=== PATIENT | male | born 1995 | race Caucasian/White ===

== ENCOUNTER 2022-01-24 03:56 | Observation (INO) | payer OTHER ==
[~2022-01-24] VITALS: Ht 172.7 cm; Wt 61.5 kg
--- NOTE | ~2022-01-24 | EKG ---
[facility] [address] [facility] [place], [place] [address] Draft EK completed, results pending confirmation PATIENT NAME: [facility]ANNON [facility]BS [facility] Electro[facility]ogram DATE OF : [birth year] PHYSICIAN: PRELIMINARY REPORT #: [id number] REPORT IS CONFIDENTIAL AND NOT TO BE RELEASED WITHOUT AUTHORIZATION
[~2022-01-24 03:56] MED LIST: AZITHROMYCIN500 MG PO; TYLENOL325 MG PO
--- NOTE | 2022-01-24 09:09 | NUR ---
Pt arrives to medical floor from ED. Able to transfer self to bed. Hx and assessment complete. IVF infusing WNL. Pt A+O, on RA. Pain 06/[address] Ontiveros in room to see patient, new orders received.
--- NOTE | 2022-01-24 10:35 | NUR ---
Rounded on patient who is resting in bed with eyes closed. Even and unlabored respirations. IVF infusing WNL. No needs apparent at this time. Call light in reach.
--- NOTE | 2022-01-24 14:45 | NUR ---
Nicotine patch applied, pt states slight agitation r/t not smoking, denies pain or nausea at this time. Father at bedside. IVF infusing. Pt awaiting surgery. Call light in reach.
--- NOTE | 2022-01-24 14:45 | NUR ---
IV ABX infusing per order. Pt provided with PRN toradol for ABD pain. Denies nausea. Assessment complete. Pt prepared and ready for surgery.
--- NOTE | 2022-01-24 15:59 | NUR ---
WHEN I WENT IN TO DO HIS AFTERNOON VITALS PATIENT HASN'T DONE HIS SURGICAL WIPE DOWN YET HE SAID HE FELL ASLEEP. SO I WENT AND GOT HIM MORE WARM SURGICAL WIPES. PATIENT DID EVERYTHING EXCEPT HIS BACK. NEW GOWN AND SOCKS.
--- NOTE | 2022-01-24 18:25 | NUR ---
Updated patient per Dr Waller that pt will be taken to surgery shortly.
--- NOTE | 2022-01-24 19:54 | NUR ---
Patient in surgical suite at this time.
--- NOTE | 2022-01-24 21:22 | NUR ---
01/24/222121 Shahrzad Rosado 2107-PATIENT ARRIVED TO PACU ON 6L MASK NONAROUSABLE ORAL AIRWAY IN PLACE. RN DOING JAW THRUST TO MAINTAIN OPEN AIRWAY. ABDOMEN INCISIONS CDI. IVF INFUSING. SB HR 50'S. 2111-PATIENT AROUSING COUGHING EYES CLOSED. ORAL AIRWAY REMOVED. HOB ELEVATED. PATIENT ORIENTED TO PACU. 6L MASK RR EVEN. 2119-IV TYLENOL INFUSING PATIENT DROWSY AWAKENS OFF AND ON LIFTING HEAD OFF PILLOW HOB ELEVATED. PATIENT DENIES PAIN OR NAUSEA. PATIENT PLACED ON RA RR EVEN 94%. PATIENT DOZES BACK TO SLEEP.
--- NOTE | 2022-01-24 21:50 | NUR ---
IN TO GET VITAL, RN IN ROOM NOW, YESSENIA PROVIDED
--- NOTE | 2022-01-24 22:27 | NUR ---
REPORT HANDOFF FROM MIGUELITO MA. PATIENT RESTING BACK IN BED REPORTS PAIN 3/10 ON PAIN SCALE. NAUSEA RESOLVED. PATIENT NOW EATING JELLO, PLAN TO ADMINISTER PO PAIN MEDICATION PER JUL. IV FLUIDS INFUSING LR @ 125 ML/HR. PATIENT'S FATHER LUKE IN ROOM. ANSWERED QUESTIONS AND CONCERNS. PATIENT ORIENTED TO ROOM, ENCOURAGED TO GET UP LATER AND AMBULATE. 3 OP SITES WITH STERI STRIPS IN PLACE, SMALL AMOUNT OF RED BLOODY DRAINAGE. PROVIDED CLEAN GOWN.
--- NOTE | 2022-01-24 23:06 | NUR ---
MEDICATED PATIENT PER MAR. PATIENT TOLERATING ORAL SNACKS AND FLUIDS. LAP SITESX3 HAVE NO NEW DRAINAGE. PATIENT WATCHING TELEVISION. VS WNL. CALL LIGHT WITHIN REACH.
--- NOTE | 2022-01-24 23:25 | NUR ---
IN TO SBA PT TO THE BR WITH URINAL, PT AMBULATES IN GUERRERO FOR BRIEF DISTANCE, BACK TO BED, NO FURTHER NEEDS AT THIS TIME
--- NOTE | 2022-01-25 | NUR ---
PATIENT RESTING WITH EYES CLOSED, REPORTS PAIN 2/10 ON PAIN SCALE. LAP SITES TO ABDOMEN HAVE KNOW KNEW DRAINAGE, STERI STRIPS INTACT. PROVIDED ICE WATER. CALL LIGHT WITHIN REACH.
--- NOTE | 2022-01-25 01:10 | NUR ---
PATIENT RESTING BACK IN BED, WITH EYES CLOSED. PATIENT UP TO BATHROOM, APPEARS STEADY ON FEET. PATIENT REPORTS MINIMAL DISCOMFORT. LAP SITES APPEAR WNL, WITH STERI STRIPS INTACT.
--- NOTE | 2022-01-25 05:59 | NUR ---
PATIENT SITTING UP IN BED, STATES " I FEEL LIKE A NEW PERSON" REPORTS TENDERNESS OVER LAP SITES, DENIES NEEDS FOR PAIN MEDICATION. LAP SITES INTACT WITH STERI STRIPS, NO NEW DRAINAGE. PATIENT REPORTS FEELING LIKE HE SLEPT WELL AND IS READY TO DISCHARGE THIS MORNING. IV FLUIDS INFUSING, PATIENT TOLERATING FLUIDS AND FOOD WELL.
--- NOTE | 2022-01-25 07:18 | NUR ---
RECEIVED REPORT FROM REN MA. PT TO POSSIBLY DISCHARGE THIS MORNING WHEN DR EVANS COMES IN FOR ROUNDS. PT TOLERATING FOOD AND ORAL LIQUIDS, VOIDING. DENIES NUASEA PAIN IS UNDER CONTROL. PT AWAKE AND PLAYING ON PHONE, DENIES NEEDS AT THIS TIME, INFORMED PT THIS RN WILL BE BACK IN TO DO AN ASSESSMENT
--- NOTE | 2022-01-25 07:42 | NUR ---
PER REN BAINS RN, SHE CALLED DR EVANS TO RECEIVE VERBAL ODER TO DC IV FLUIDS PATIENT IS DRINKING FLUIDS AND VOIDING WELL TO BE DISCHARGED THIS AM WELL. DR EVANS GAVE VERBAL ORDER TO SALINE LOCK.
--- NOTE | 2022-01-25 07:44 | NUR ---
CALL TO DR. EVANS, PROVIDED UPDATE WITH PATIENT CARE. PLAN TO DC PATIENT THIS MORNING. NEW ORDER TO SL LOCK AND DC IV FLUIDS. UPDATED PRIMARY NURSE AND CHARGE NURSE.
--- NOTE | 2022-01-25 08:00 | NUR ---
pt assessment completed, patient is resting on bed understands he will be having breakfast soon, denies any needs, denies need for pain medication, denies nausea. Dr Ontiveros to come see pt this morning for possible discharge.
--- NOTE | 2022-01-25 09:00 | NUR ---
in room to give pt his morning meds and pt is fully dressed, father in room. pt states he is "ready to go" continued to inform pt that Dr Ontiveros will be here this morning to possibly dc denies needs at this time. pt ate 100% of breakfast
--- NOTE | 2022-01-25 09:58 | NUR ---
PATIENT IN BED DRESSED AND READY FOR DISCHARGE WITH FAMILY. VITALS AND I/O'S COMPLETED. NO OTHER NEEDS AT THIS TIME CALL LIGHT WITHIN REACH.
--- NOTE | 2022-01-25 10:49 | NUR ---
pt up walking around room, is fully dressed with IV still in. pt informed again we are waiting for Dr Waller to come do his rounds and he is the one who determines patient can be discharged, verbalized understanding. apologized for the wait as as Dr Waller was here late last night with a case and has multiple pts to round on.
--- NOTE | 2022-01-25 11:15 | NUR ---
called dr cain as patient and his father came to nurse station, concerned about needing to leave patient stating "i've got things to do i've got a kid i need to get home to, i'm not trying to be that asshole, i appreciate all of you, but i am feeling good" Dr Cain recommneds patient to stay for his post op eval prior to dc. informed dr Cain of patient's insistence and informed Dr Zamudio that patient was encouraged to stay and speak with the surgeon for any post op concerns, questions etc and for him to look at his surgical sites. Dr Cain requests if patient does sign out AMA he schedules follow up in his office a month out, sooner for any concerns. Dr cain repotrs he will be here in 30 minutes relayed this to patient he is still insistent to leave. r
--- NOTE | 2022-01-25 11:30 | NUR ---
patient signed ama form. reveiwed with patient possible risks of leaving ama. pt verbalized understanding. iv removed tip intact site wrapped with guaze and coban. provided dc instructions for post op lap appy care, pt instructed to call Dr Ontiveros's office for follow up, go to ER for any worsening or serious concerns. pt ambulatory leaves with his father, declines need for wheelchair.
--- NOTE | 2022-01-29 14:14 | OR ---
[facility] [address] [place], [place] [address] Signed DATE OF OPERATION: 01/24/2022 SURGEON: Farida Evans MD PREOPERATIVE DIAGNOSIS: Acute appendicitis. POSTOPERATIVE DIAGNOSIS: Acute appendicitis, nonperforated. PROCEDURE: Laparoscopic appendectomy. ANESTHESIA: General endotracheal, Lux Selina, CAMPAIGN WORKER, and local 10 mL of 0.25% Marcaine with epinephrine. INDICATION: This 26-year-old white man began having right lower abdominal pain at approximately 3 a.m. He presented to emergency room, was evaluated by Dr. Harper and subsequently Dr. Del Real, and found on CT scan to have findings consistent with an acute appendicitis. A retrocecal appendix with edema and swelling as well as a fecalith was noted. There were no other findings of concern. The patient has been fluid resuscitated, given intravenous antibiotic cefoxitin, and is now to undergo operation to include laparoscopic appendectomy. The risks of bleeding, infection, failure of diagnosis, misdiagnosis, and need for other indicated procedures was reviewed with the patient and his father, who accompanies him. He understands and wished to proceed. FINDINGS: Indeed the distal half of the appendix was acutely inflamed. There was no evidence of perforation, however. Appendectomy was performed without problem. The terminal ileum was normal. There was some inflammatory fluid within the pelvis to a degree. The gallbladder appeared to be secondarily inflamed, somewhat edematous and so on, but unlikely to be a primary source of pathology and was left in situ. DESCRIPTION OF PROCEDURE: Electronically Signed By: FARIDA EVANS MD 01/29/22 1414 PATIENT NAME: SHANNON COMBS [facility] OPERATIVE REPORT DATE OF : [birth year] REPORT #: [id number] PHYSICIAN: FARIDA EVANS MD PCP: NO PRIMARY CARE PHYSICIAN REPORT IS CONFIDENTIAL AND NOT TO BE RELEASED WITHOUT AUTHORIZATION [facility] [address] [place], [place] [address] Signed The patient was brought to the operating room, given a general endotracheal anesthetic. Preoperative antibiotic cefoxitin had been given. Sequential compression device stockings were used. A Santa catheter was not required, as the patient had voided immediately prior to operation. The abdomen was clipped and prepared with a chlorhexidine solution and draped sterilely after satisfactory general endotracheal anesthesia. An infraumbilical incision was made and using an open Dick cannula technique pneumoperitoneum was achieved to a level of 14 mmHg of carbon dioxide gas. Intra-abdominal inspection showed some relatively clear inflammatory fluid in the pelvis and over the right pericolic gutter, but no jean purulence. Examination of the upper abdomen showed a somewhat edematous and somewhat pale appearing gallbladder, probably secondarily inflamed due to inflammatory fluid within the abdomen and not primary cholecystitis per se. The epigastric port was placed and the camera was placed to that site. Single hand manipulation of the cecum did reveal the retrocecal appendix, which was reasonably easily accessed. The terminal ileum was normal. Right lower quadrant 5 mm port was placed and with two hand manipulation, the appendix elevated allowing for creation of a window between the appendix and the cecum with minimal amount of electrocautery. A window was created in this area and using an Endo-RAD stapling device, the appendix was transected, flushed with the cecum. Further manipulation allowed for application of vascular load across the mesoappendix. The appendix was withdrawn into the infraumbilical port and eventually removed and confirmed to have acute appendicitis. Irrigation was undertaken in the right lower quadrant. Minimal amount of cautery was applied to the staple line. There was area of deserosalization in a minimal amount in the terminal ileum and on that basis a single 2-0 silk suture was used to imbricate the serosa laparoscopically without problem. Irrigation was undertaken and additional examination undertaken of the upper abdomen. The gallbladder did have some edema and secondary inflammation is not likely to be a primary focus of the problem at this time. The liver was normal. The laparoscopic trocars were removed under direct visualization showing no sign of bleeding. The infraumbilical fascial incision was reapproximated with interrupted 0 Vicryl suture. 10 mL of 0.25% Marcaine with epinephrine injected locally. The skin was closed with interrupted 3-0 Vicryl and Steri-Strips applied. He was extubated in the operating room and transferred to the recovery room in good condition having suffered no complications. Sponge, needle, and instrument counts reported as correct x3. Electronically Signed By: FARIDA EVANS MD 01/29/22 1414 PATIENT NAME: SHANNON COMBS [facility] [place] OPERATIVE REPORT DATE OF : [birth year] REPORT #: [id number] PHYSICIAN: FARIDA EVANS MD PCP: NO PRIMARY CARE PHYSICIAN REPORT IS CONFIDENTIAL AND NOT TO BE RELEASED WITHOUT AUTHORIZATION [facility] [address] [place] [id number] Signed Farida Evans MD JM/MODL /[id number] cc: MD Dr. Leroy Carrasco Copies: LAUREL DEL REAL MD ~ Electronically Signed By: FARIDA EVANS MD 01/29/22 1414 PATIENT NAME: SHANNON COMBS [facility] OPERATIVE REPORT DATE OF : [birth year] REPORT #: [id number] PHYSICIAN: FARIDA EVANS MD PCP: NO PRIMARY CARE PHYSICIAN REPORT IS CONFIDENTIAL AND NOT TO BE RELEASED WITHOUT AUTHORIZATION
--- NOTE | 2022-01-29 14:14 | HP ---
[facility] [address] [place], [place] [address] Signed ADMISSION DATE: 01/24/2022 REASON FOR ADMISSION: Acute appendicitis. HISTORY OF PRESENT ILLNESS: This 26-year-old white man is accompanied by his father. He was seen in the emergency room by Dr. Harper with complaints of right lower abdominal pain. 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 The pain worsened through the night and he had at least one episode of nausea and vomiting. The pain became intolerable and he presented to the emergency room, evaluated by Dr. Harper and underwent CT scan of the abdomen, which confirmed a retrocecal appendix that was inflamed and edematous with a radiodense fecalith. He is admitted for further evaluation and care. PAST MEDICAL HISTORY: Rather unremarkable. He denies any prior operations or ongoing medical problems. He takes no medications routinely. The patient does smoke cigarettes, but drinks alcohol only rarely. SOCIAL HISTORY: He has a girlfriend with whom he lives, and one child, a son. He is accompanied by his father right now. PHYSICAL EXAMINATION: GENERAL: A thin white man, who looks to be not systemically toxic. Trachea is midline. CHEST: Clear. HEART: Regular. ABDOMEN: Nondistended. Rovsing sign is negative. He does have tenderness in the right lower quadrant at McBurney's point. EXTREMITIES: No clubbing, cyanosis, or edema. LABORATORY STUDIES: White count of 19.3, hematocrit 41.1. Chem profile was normal. Glucose was 121. Liver enzymes are normal. Lipase 37 (urinalysis was essentially normal). Serology showed negative COVID. I have reviewed the CT scan in detail as well. ASSESSMENT: The patient has acute appendicitis; the appendix is in a retrocecal position. A Electronically Signed By: FARIDA EVANS MD 01/29/22 1414 PATIENT NAME: SHANNON COMBS HISTORY AND PHYSICAL DATE OF : [birth year] REPORT #: [id number] PHYSICIAN: FARIDA EVANS MD PCP: NO PRIMARY CARE PHYSICIAN REPORT IS CONFIDENTIAL AND NOT TO BE RELEASED WITHOUT AUTHORIZATION [facility] [address] [place], [place] [address] Signed laparoscopic approach would be preferred for appendectomy, though he may require an open procedure depending on findings. I did discuss an emerging (or reemerging) approach of nonoperative antibiotic based treatment. I would not recommend this on the basis of his findings, both clinically and radiographically. He prefers an operative approach as well. I discussed with him the risks of bleeding, infection, need for open set of laparoscopic approach, and need for other indicated procedures. He understands and agrees to proceed. MD ARLETH Garcia/MODL /[id number] cc: Dr. Harper Copies: ~ Electronically Signed By: FARIDA EVANS MD 01/29/22 1414 PATIENT NAME: SHANNON COMBS HISTORY AND PHYSICAL DATE OF : [birth year] REPORT #: [id number] PHYSICIAN: FARIDA EVANS MD PCP: NO PRIMARY CARE PHYSICIAN REPORT IS CONFIDENTIAL AND NOT TO BE RELEASED WITHOUT AUTHORIZATION
--- NOTE | 2022-01-30 16:18 | PATH ---
[facility] [address] [facility] [place], [place] [address] Signed SPECIMEN(S): A APPENDIX SPECIMEN SOURCE: A. APPENDIX CLINICAL HISTORY: Preop: RLQ pain, vomiting. Postop: Acute appendicitis. FINAL PATHOLOGIC DIAGNOSIS: Appendix, appendectomy: - Acute appendicitis. - No evidence of neoplasia. ALEXANDROK:leidy:C2NR MICROSCOPIC EXAMINATION: Histologic sections of all submitted blocks are examined by light microscopy. These findings, together with the gross examination, support the pathologic diagnosis. GROSS DESCRIPTION: The specimen, labeled "ZS, A," and designated on the requisition "appendix," is received in formalin and consists of: Specimen: Appendix with mesoappendix. Dimensions: 8.2 cm long, 1.1 cm in diameter appendix with attached mesoappendix up to 1.4 cm wide. Serosa: Clarke, variegated, slightly bumpy, glistening without a discrete mass/lesion. Transmural Defect: Not grossly identified. Inking: Staple line is inked black. Mucosa: The lumen contains a copious amount of clarke pasty material and is lined by clarke to brown focally flattened mucosa. Fecalith: Not grossly identified. Additional: None. Vp Rheumatology sections are submitted in cassette (A1). AI (under the direct supervision of a pathologist) The Gross Description was prepared using a voice recognition system. The report was reviewed for accuracy; however, sound-alike word errors, addition and/or deletions may occur. If there is any question about this report, please contact Client Services. PERFORMING LABORATORY: PATIENT NAME: SHANNON COMBS PATHOLOGY DATE OF : [birth year] REPORT #: [id number] PHYSICIAN: TWYLA BULL PCP: NO PRIMARY CARE PHYSICIAN REPORT IS CONFIDENTIAL AND NOT TO BE RELEASED WITHOUT AUTHORIZATION [address] [place], [place] [address] Signed The technical component was performed by [facility], [address] [place] [address] (CLIA# [id number]). The professional interpretation was performed by [facility], [facility], [address] [place] [id number] (CLIA#: [id number]). Diagnostician: Darius Vuong MD Pathologist Electronically Signed 01/30/2022 Copies: ~ PATIENT NAME: SHANNON COMBS GENE PATHOLOGY DATE OF : [birth year] REPORT #: [id number] PHYSICIAN: TWYLA BULL PCP: NO PRIMARY CARE PHYSICIAN REPORT IS CONFIDENTIAL AND NOT TO BE RELEASED WITHOUT AUTHORIZATION
== END 2022-01-25 11:30 | disposition home or self-care (01) ==
LOC: ED 03:56 → MS 03:58 → ED 03:58 → MS 03:59
PROVIDERS: ADMIT Surgery; ATTEND Surgery
PROC: 0DTJ4ZZ Resection of Appendix, Percutaneous Endoscopic Approach (ICD-10-PCS; principal; 2022-01-24 20:14)
DX: K35.80 Unspecified acute appendicitis (principal); Z53.29 Procedure and treatment not carried out because of patient's decision for other reasons; F17.210 Nicotine dependence, cigarettes, uncomplicated; Z20.822 Contact with and (suspected) exposure to COVID-19
CPT/HCPCS: 00840; 36415; 74177; 80053; 81001; 83690; 85025; 87502; 93005; 93010; 96372; 96375; 96376; 99285-25; C9803; G0378; J0131; J0694; J1100; J1644; J1885; J2001; J2270; J2405; J2704; J3010; J7030; J7121; Q9967; U0003